=== PATIENT | female | born 1985 | race African-American/Black ===

== ENCOUNTER 2017-02-07 18:42 | Emergency (ER) | payer MEDICAID ==
[~2017-02-07] VITALS: Ht 167.6 cm; Wt 86.2 kg
[2017-02-07 19:10] LABS: Basophils # (auto) 0 uL; Basophils % (auto) 0.3 % (0.0-2.0); CONDITION Y; Eosinophils # (auto) 0 uL; Hemoglobin 12.8 g/dL (12.2-16.2); Lymphocytes # (auto) 0.9 uL; Lymphocytes % (auto) 18.5 % (10.0-50.0); Mean Corpuscular Hemoglobin 30.1 pg (28.0-32.0); Mean Corpuscular Hgb Conc. 33.6 g/dL (32.0-36.0); Mean Corpuscular Volume 89.6 fL (80.0-100.0); Mean Platelet Volume 9.7 fL (7.4-10.4); Monocytes # (auto) 0.3 uL; Monocytes % (auto) 6.6 % (0.0-12.0); Neutrophils # (auto) 3.7 uL; Neutrophils % (auto) 74.6 % (37.0-80.0); Platelet Count (auto) 217 10^3/uL (140-450); Red Cell Distribution Width 14.6 % (11.6-16.0); White Blood Cell 4.9 10^3/uL (4.4-10.8)
[2017-02-07 19:51] LABS: BUN/Creatinine Ratio 8.1; Bilirubin, Total 0.5 mg/dL (0.2-1.0); Calcium 8.9 mg/dL (8.5-10.1); Potassium 3.6 mmol/L (3.5-5.1); Total Protein 8.2 g/dL (6.4-8.2)
[2017-02-07] MEDS ORDERED: SODIUM CHLORIDE 0.9% 1,000 ML IVB ONE (21:11)
[2017-02-07] MEDS ORDERED: NIFEdipine 10 MG CAP PO ONE (21:15)
[2017-02-07] MEDS ORDERED: LORazepam 2MG/ML-1ML VIAL IV ONE (21:15)
[2017-02-07 21:48] LABS: Partial Thromboplastin Time 29.4 sec (22.64-33.71); Prothrombin Time 10.9 sec (9.37-12.3)
[2017-02-07 22:00] LABS: B-Type Natriuretic Peptide 13.23 pg/mL (0-100)
[2017-02-07 22:04] LABS: Magnesium 2.2 mg/dL (1.6-2.6); Temperature: 23.7 C (20.0-25.0)
[2017-02-07] MEDS ORDERED: SODIUM CHLORIDE 0.9% 1,000 ML IV ONE (22:45)
[2017-02-07] MEDS ORDERED: HYDROcodone-ACET 7.5/325MG TAB PO ONE (22:45)
[2017-02-07] MEDS ORDERED: SODIUM CHLORIDE 0.9% 2,000 ML IV ONE (22:45)
[2017-02-07 22:59] LABS: Urine RBC <1 /hpf (0 - 4); Urine Squamous Epithelial Cell FEW /hpf (<5)
[2017-02-07 23:11] LABS: Urine Color Yellow (Yellow)
[2017-02-07 23:12] LABS: Urine Bilirubin Negative (Negative); Urine Blood Negative /uL (Negative); Urine Glucose Normal (Normal); Urine Ketone 1+ (Negative); Urine Nitrite Negative (Negative); Urine Urobilinogen Normal (Negative)
[2017-02-08 00:29] VITALS: BP 149/89
== END 2017-02-08 01:04 | disposition left against medical advice (07) ==
LOC: ER 18:57
DX: E86.0 Dehydration (principal); I10 Essential (primary) hypertension; F41.9 Anxiety disorder, unspecified; M32.9 Systemic lupus erythematosus, unspecified; R51 Headache; F12.10 Cannabis abuse, uncomplicated; Z90.49 Acquired absence of other specified parts of digestive tract; E07.9 Disorder of thyroid, unspecified; Z88.0 Allergy status to penicillin; Z88.2 Allergy status to sulfonamides
CPT/HCPCS: 36415; 71010; 80053; 80307; 80320; 81001; 81025; 83605; 83735; 83880; 84443; 84484; 85025; 85610; 85730; 93005; 94761; 96361; 96374; 99285; J2060; J7030

== ENCOUNTER 2018-11-16 00:39 | Emergency (ER) | payer MEDICAID ==
[~2018-11-16] VITALS: Ht 167.6 cm; Wt 81.6 kg
[2018-11-16 01:15] VITALS: BP 156/101
[2018-11-16 01:38] LABS: Urine Bacteria MANY /hpf (None Seen); Urine Blood Negative /uL (Negative); Urine Mucus FEW (None Seen); Urine Specific Gravity 1.024 (1.001-1.035); Urine WBC 66 /hpf (0 - 5)
== END 2018-11-16 04:30 | disposition left against medical advice (07) ==
LOC: ER 00:42
DX: R10.9 Unspecified abdominal pain (principal); R42 Dizziness and giddiness; R19.7 Diarrhea, unspecified; Z53.21 Procedure and treatment not carried out due to patient leaving prior to being seen by health care provider
CPT/HCPCS: 81001; 81025

== ENCOUNTER 2019-04-10 09:40 | Emergency (ER) | payer MEDICAID, OTHER ==
[~2019-04-10] VITALS: Ht 167.6 cm; Wt 81.6 kg
[2019-04-10 10:21] LABS: Basophils # (auto) 0 uL; Basophils % (auto) 0.1 % (0.0-2.0); Eosinophils # (auto) 0 uL; Hematocrit 40.5 % (36.0-46.0); Hemoglobin 13.8 g/dL (12.2-16.2); Lymphocytes # (auto) 0.9 uL; Lymphocytes % (auto) 26.4 % (10.0-50.0); Mean Corpuscular Hemoglobin 32.3 pg (28.0-32.0); Mean Corpuscular Hgb Conc. 34.1 g/dL (32.0-36.0); Mean Corpuscular Volume 94.5 fL (80.0-100.0); Monocytes # (auto) 0.3 uL; Monocytes % (auto) 9.1 % (0.0-12.0); Neutrophils # (auto) 2.3 uL; Neutrophils % (auto) 64.4 % (37.0-80.0); Nucleated Red Blood Cells % 0.3 %; Platelet Count (auto) 155 10^3/uL (140-450); Red Blood Cells 4.28 10^6/uL (4.0-5.20); Red Cell Distribution Width 13.4 % (11.8-14.3); White Blood Cell 3.5 10^3/uL (4.4-10.8)
[2019-04-10 10:49] LABS: Albumin 3.9 g/dL (3.4-5.0); Calcium 8.5 mg/dL (8.5-10.1)
[2019-04-10 10:53] LABS: BUN/Creatinine Ratio 11.9; Bilirubin, Total 0.5 mg/dL (0.2-1.0); Total Protein 7.6 g/dL (6.4-8.2)
[2019-04-10 13:01] LABS: Urine Bacteria MANY /hpf (None Seen); Urine Blood Negative /uL (Negative); Urine Mucus FEW (None Seen); Urine Specific Gravity 1.018 (1.001-1.035); Urine WBC 73 /hpf (0 - 5)
[2019-04-10 14:54] VITALS: BP 157/94
== END 2019-04-10 14:58 | disposition home or self-care (01) ==
LOC: ER 09:40
DX: N39.0 Urinary tract infection, site not specified (principal); R10.31 Right lower quadrant pain; I10 Essential (primary) hypertension; E07.9 Disorder of thyroid, unspecified; M32.9 Systemic lupus erythematosus, unspecified; Z88.0 Allergy status to penicillin; Z88.2 Allergy status to sulfonamides
CPT/HCPCS: 36415; 74176; 80053; 81001; 84702; 85025

== ENCOUNTER 2019-06-01 03:31 | Emergency (ER) | payer OTHER ==
[~2019-06-01] VITALS: Ht 167.6 cm; Wt 74.8 kg
[2019-06-01] MEDS ORDERED: SODIUM CHLORIDE 0.9% 2,000 ML IV ONE (04:45)
[2019-06-01 04:56] LABS: Basophils # (auto) 0 uL; Basophils % (auto) 0.3 % (0.0-2.0); Eosinophils # (auto) 0 uL; Hematocrit 37.9 % (36.0-46.0); Hemoglobin 13.3 g/dL (12.2-16.2); Lymphocytes % (auto) 21.2 % (10.0-50.0); Mean Corpuscular Hemoglobin 32.6 pg (28.0-32.0); Mean Corpuscular Hgb Conc. 35.1 g/dL (32.0-36.0); Mean Corpuscular Volume 92.8 fL (80.0-100.0); Monocytes # (auto) 0.4 uL; Monocytes % (auto) 8.8 % (0.0-12.0); Neutrophils # (auto) 3.4 uL; Neutrophils % (auto) 69.7 % (37.0-80.0); Platelet Count (auto) 157 10^3/uL (140-450); Red Blood Cells 4.09 10^6/uL (4.0-5.20); Red Cell Distribution Width 12.1 % (11.8-14.3); White Blood Cell 4.9 10^3/uL (4.4-10.8)
[2019-06-01 05:05] LABS: Albumin 3.5 g/dL (3.4-5.0); Calcium 8.5 mg/dL (8.5-10.1); Potassium 3.2 mmol/L (3.5-5.1)
[2019-06-01 05:10] LABS: Bilirubin, Total 0.5 mg/dL (0.2-1.0); Total Protein 7.6 g/dL (6.4-8.2)
[2019-06-01] MEDS ORDERED: ONDANSETRON HCL 4 MG/2 ML VIAL IV ONE (05:30)
[2019-06-01] MEDS ORDERED: MORPHINE SULFATE 4 MG/ML SYR/VIAL IV ONE (05:30)
[2019-06-01] MEDS ORDERED: SODIUM CHLORIDE 0.9% 1,000 ML IV ONE (07:30)
[2019-06-01 07:49] LABS: Urine Bacteria NONE SEEN /hpf (None Seen); Urine Blood Negative /uL (Negative); Urine Mucus FEW (None Seen); Urine Specific Gravity 1.017 (1.001-1.035); Urine WBC 2 /hpf (0 - 5)
[2019-06-01 08:27] VITALS: BP 140/93
== END 2019-06-01 08:00 | disposition home or self-care (01) ==
LOC: ER 03:32
DX: M32.9 Systemic lupus erythematosus, unspecified (principal); F41.9 Anxiety disorder, unspecified; R11.2 Nausea with vomiting, unspecified; I10 Essential (primary) hypertension; E03.9 Hypothyroidism, unspecified; Z90.49 Acquired absence of other specified parts of digestive tract; Z88.0 Allergy status to penicillin; Z88.2 Allergy status to sulfonamides
CPT/HCPCS: 36415; 80053; 81001; 81025; 83605; 84443; 85025; 96361; 96374; 96375; 99283; J2270; J2405; J7030

== ENCOUNTER 2019-06-06 19:39 | Emergency (ER) | payer OTHER ==
[~2019-06-06] VITALS: Ht 167.6 cm; Wt 74.8 kg
[2019-06-06 21:03] LABS: Basophils # (auto) 0 uL; Eosinophils # (auto) 0 uL; Hematocrit 38.2 % (36.0-46.0); Hemoglobin 13.5 g/dL (12.2-16.2); Lymphocytes % (auto) 19.4 % (10.0-50.0); Mean Corpuscular Hemoglobin 33.1 pg (28.0-32.0); Mean Corpuscular Hgb Conc. 35.3 g/dL (32.0-36.0); Mean Corpuscular Volume 93.7 fL (80.0-100.0); Monocytes # (auto) 0.5 uL; Monocytes % (auto) 8.9 % (0.0-12.0); Neutrophils # (auto) 3.8 uL; Neutrophils % (auto) 71.7 % (37.0-80.0); Nucleated Red Blood Cells % 0.1 %; Platelet Count (auto) 176 10^3/uL (140-450); Red Blood Cells 4.08 10^6/uL (4.0-5.20); Red Cell Distribution Width 12.2 % (11.8-14.3); White Blood Cell 5.4 10^3/uL (4.4-10.8)
[2019-06-06 21:19] LABS: Albumin 3.8 g/dL (3.4-5.0); Calcium 8.7 mg/dL (8.5-10.1); Potassium 3.4 mmol/L (3.5-5.1)
[2019-06-06 21:24] LABS: BUN/Creatinine Ratio 8.3; Bilirubin, Total 0.6 mg/dL (0.2-1.0); Total Protein 7.6 g/dL (6.4-8.2)
[2019-06-06 22:57] VITALS: BP 150/97
== END 2019-06-07 00:53 | disposition left against medical advice (07) ==
LOC: ER 19:39
DX: R53.1 Weakness (principal); R11.2 Nausea with vomiting, unspecified; Z53.21 Procedure and treatment not carried out due to patient leaving prior to being seen by health care provider
CPT/HCPCS: 36415; 80053; 85025

== ENCOUNTER → 2019-10-26 | Emergency (ER) | payer OTHER ==
[~2019-10-26] VITALS: Ht 170.2 cm; Wt 85.0 kg
[~2019-10-26] MED LIST: SODIUM CHLORIDE 0.9% 1,000 ML IV ONE
[2019-10-26 05:51] LABS: Basophils # (auto) 0 10 ^3/uL (0-0.2); Eosinophils # (auto) 0 10 ^3/uL (0-0.8); Hematocrit 33.7 % (36.0-46.0); Lymphocytes # (auto) 1.4 10 ^3/uL (0.4-5.4); Lymphocytes % (auto) 23.6 % (10.0-50.0); Mean Corpuscular Hemoglobin 33.6 pg (28.0-32.0); Mean Corpuscular Hgb Conc. 35.6 g/dL (32.0-36.0); Mean Corpuscular Volume 94.3 fL (80.0-100.0); Monocytes # (auto) 0.4 10 ^3/uL (0-1.3); Monocytes % (auto) 7.4 % (0.0-12.0); Neutrophils # (auto) 4.1 10 ^3/uL (1.6-8.6); Nucleated Red Blood Cells % 0.2 %; Platelet Count (auto) 161 10^3/uL (140-450); Red Blood Cells 3.58 10^6/uL (4.0-5.20); Red Cell Distribution Width 12.4 % (11.8-14.3); White Blood Cell 5.9 10^3/uL (4.4-10.8)
[2019-10-26 06:06] LABS: Albumin 2.9 g/dL (3.4-5.0); Calcium 9.1 mg/dL (8.5-10.1); Potassium 3.3 mmol/L (3.5-5.1)
[2019-10-26 06:09] LABS: BUN/Creatinine Ratio 13.1; Bilirubin, Total 0.3 mg/dL (0.2-1.0); Total Protein 7.1 g/dL (6.4-8.2)
[2019-10-26 06:19] LABS: Urine Bacteria FEW /hpf (None Seen); Urine Blood Negative /uL (Negative); Urine Mucus FEW (None Seen); Urine Specific Gravity 1.029 (1.001-1.035); Urine WBC 21 /hpf (0 - 5)
[2019-10-26 10:14] VITALS: BP 121/67
== END | disposition home or self-care (01) ==
LOC: ER 04:48
DX: O23.42 Unspecified infection of urinary tract in pregnancy, second trimester (principal); E86.0 Dehydration; I10 Essential (primary) hypertension; Z90.49 Acquired absence of other specified parts of digestive tract; Z3A.19 19 weeks gestation of pregnancy
CPT/HCPCS: 36415; 76805; 80053; 81001; 83690; 84702; 85025; 96360; 99284; J7030